=== PATIENT | male | born 1990 | race Caucasian/White ===

== ENCOUNTER → 2021-11-27 14:37 | Outpatient (CLI) | payer BC, SELFPAY | PROVIDERS: Visit Provider Nurse Practitioner Critical Care Medicine | DX: Z11.3 Encounter for screening for infections with a predominantly sexual mode of transmission (principal); N48.9 Disorder of penis, unspecified | CPT/HCPCS: 87255 ==

== ENCOUNTER → 2021-11-27 15:10 | Outpatient (CLI) | payer BC, SELFPAY ==
[2021-11-28 08:59] LABS: RPR Screen Non Reactive (Non Reactive)
[2021-11-30 20:27] LABS: HSV 2 IGG AB 1.85 index (0.00-0.90); HSV1IGG < 0.91 index (0.00-0.90)
[2021-11-30 20:41] LABS: HIV 1 & 2 Ab/Ag 4th Gen Combo NEGATIVE (NEGATIVE)
== END ==
PROVIDERS: Referring Provider Nurse Practitioner Critical Care Medicine; Visit Provider Nurse Practitioner Critical Care Medicine
DX: Z11.3 Encounter for screening for infections with a predominantly sexual mode of transmission (principal); N48.9 Disorder of penis, unspecified
CPT/HCPCS: 36415; 86592; 86695; 86696; 87255; 87389

== ENCOUNTER → 2022-04-27 09:12 | Outpatient (CLI) | payer BC, SELFPAY ==
[2022-04-27 20:57] LABS: Add Manual Diff / Slide Review NO; Basophils Absolute Auto 0 /uL (0-100); Basophils Percent Auto 0.6 % (0-2); Eosinophils Absolute Auto 200 /uL (0-450); Eosinophils Percent Auto 2.6 % (2-4); Hematocrit 43.5 % (41-53); Lymphocytes Absolute Auto 1900 /uL (1100-4500); Lymphocytes Percent Auto 31.1 % (25-40); Mean Corpuscular HGB Conc 34.5 % (30-36); Mean Corpuscular Hemoglobin 29.4 PG (26-34); Mean Corpuscular Volume 85.2 fL (80-100); Monocytes Absolute Auto 600 /uL (0-900); Monocytes Percent Auto 10.6 % (3-14); Neutrophils Absolute Auto 3300 /uL (1500-7000); Neutrophils Percent Auto 55.1 % (50-75); Platelet Count 281 X10^3/uL (150-400); Red Cell Distribution Width 13.3 % (11.6-14.8)
[2022-04-27 21:19] LABS: BUN Creatinine Ratio 15.5 (6-22); Blood Urea Nitrogen 15 mg/dL (9-20); Calcium 9.4 mg/dL (8.4-10.2); Carbon Dioxide 26 mmol/L (22-32); Chloride 106 mmol/L (98-107); Cholesterol 198 mg/dL (140-199); Estimated Glomerular Filt Rate > 60 mL/min (>60); Glucose 103 mg/dL (70-100); HDL Cholesterol 37 mg/dL (40-60); HEMOLYSIS < 15 (0-50); LDL Cholesterol Calculated 126 mg/dL (<100); Potassium 4.5 mmol/L (3.4-5.1); Sodium 138 mmol/L (137-145); Triglycerides 177 mg/dL (35-150)
== END ==
PROVIDERS: PCP Family Medicine; Visit Provider Family Medicine
DX: Z13.9 Encounter for screening, unspecified (principal)
CPT/HCPCS: 80048; 80061; 85025